=== PATIENT | female | born 1945 | race Caucasian/White ===

== ENCOUNTER → 2018-05-10 14:44 | Outpatient (CLI) | payer MEDICARE, OTHER, SELFPAY ==
--- NOTE | 2018-05-10 14:48 | DI.MG.S_ITS ---
BILATERAL DIGITAL SCREENING MAMMOGRAM 3D/2D WITH CAD: 05/10/2018 CLINICAL: Routine screening. Baseline exam. No prior exams were available for comparison. The tissue of both breasts is predominantly fatty. Current study was also evaluated with a Computer Aided Detection (CAD) system. No significant masses, calcifications, or other findings are seen in either breast. IMPRESSION: NEGATIVE There is no mammographic evidence of malignancy. A 1 year screening mammogram is recommended. This exam was interpreted at Station ID: [id number]. NOTE: For mammograms, a report in lay terms will be sent to the patient. Approximately 15% of breast malignancies will not be visualized mammographically. In the management of a palpable breast mass, a negative mammogram must not discourage biopsy of a clinically suspicious lesion. Electronically Signed By: Vera knox/ankita:05/10/2018 16:56:43 letter sent: Normal Exam ACR BI-RADS Category 1: Negative 3341F
== END ==
PROVIDERS: PCP Family Medicine; Visit Provider Family Medicine
DX: Z12.31 Encounter for screening mammogram for malignant neoplasm of breast (principal)
CPT/HCPCS: 77063; 77067

== ENCOUNTER → 2021-07-15 18:31 | Outpatient (CLI) | payer MEDICARE, OTHER, SELFPAY ==
--- NOTE | 2021-07-15 18:39 | DI.RAD.S_ITS ---
PROCEDURE: XR FOOT LT MIN 3V INDICATIONS: heel pain TECHNIQUE: 3 views of the foot were acquired. COMPARISON: None. FINDINGS: Bones: No fractures or dislocations. No suspicious bony lesions. Moderate plantar calcaneal spur present. Soft tissues: No tibiotalar joint effusion. Achilles tendon appears normal. IMPRESSION: Moderate calcaneal spur. Otherwise unremarkable radiographs Approved by: Calixto Fitch M.D. on 07/15/2021 at 18:00
== END ==
PROVIDERS: PCP Family Medicine; Referring Provider Nurse Practitioner Family; Visit Provider Nurse Practitioner Family
DX: M77.32 Calcaneal spur, left foot (principal); M79.672 Pain in left foot
CPT/HCPCS: 73630

== ENCOUNTER → 2022-03-17 15:00 | Outpatient (CLI) | payer MEDICARE, OTHER, SELFPAY ==
--- NOTE | 2022-03-17 15:02 | DI.MRI.S_ITS ---
PROCEDURE: MR LUMBAR SPINE WO CON INDICATIONS: Lumbago with sciatica, left side TECHNIQUE: Noncontrast sagittal T1 spin echo and T2 fast echo, sagittal STIR, and T2 fast spin echo through the lumbar spine. In cases with scoliosis, additional coronal T2 fast spin echo may be performed. COMPARISON: None. FINDINGS: Image quality: Excellent. Alignment and Curvature: Multilevel grade 1 retrolistheses are seen throughout the lumbar spine measuring 2 mm at L1 on L2, 2 mm at L2 on L3, 2 mm at L3 on L4, and 2 mm of L5 on S1. Bone Marrow: Marrow is of normal overall signal. No acute vertebral body compression fractures. Spinal Cord: Conus medullaris terminates at the L1 level. Visualized cord demonstrates normal signal and size. Paraspinous Soft Tissues: No paravertebral masses. There is grade 2 fatty infiltration of the paraspinous musculature. T12-L1: There is disc desiccation and mild circumferential disc bulging without significant spinal canal stenosis or neural foraminal narrowing. L1-L2: There is disc desiccation and mild loss of disc space height with circumferential disc bulging. Findings do not result in significant spinal canal stenosis or neural foraminal narrowing. L2-L3: There is disc desiccation and mild loss of disc space height with circumferential disc bulging that is mildly eccentric towards the right as well as mild bilateral facet hypertrophy. Findings result in mild narrowing of the spinal canal as well as effacement of the right lateral recess and mild right neural foraminal narrowing without significant left neural foraminal narrowing. L3-L4: There is disc desiccation and loss of disc space height with circumferential disc bulging and mild bilateral facet hypertrophy as well as buckling of the ligamentum flavum. Findings result in moderate narrowing of the spinal canal as well as effacement of the lateral recesses and mild bilateral neural foraminal narrowing. L4-L5: There is disc desiccation and loss of disc space height with circumferential disc bulging and mild to moderate bilateral facet hypertrophy and buckling of the ligamentum flavum. Findings result in moderate narrowing of the spinal canal and mild crowding of the lateral recesses as well as bilateral mild neural foraminal narrowing. L5-S1: Postsurgical changes are seen from left hemilaminotomy with decompression of the thecal sac. There is disc space narrowing and circumferential disc bulging as well as mild bilateral facet hypertrophy. There is moderate right and [id number] left neural foraminal narrowing. IMPRESSION: Multilevel degenerative disc disease and facet hypertrophy as described in detail in the body of the report. There is moderate spinal canal narrowing at the L3-4 and L4-5 levels. Multilevel facet hypertrophy is worst and moderate in severity at the L5-S1 level on the right. Dictated by: Bao Carlos M.D. on 03/17/2022 at 18:17 Approved by: Bao Carlos M.D. on 03/17/2022 at 18:30
== END ==
PROVIDERS: PCP Family Medicine; Referring Provider Family Medicine; Visit Provider Family Medicine
DX: M48.061 Spinal stenosis, lumbar region without neurogenic claudication (principal); M54.42 Lumbago with sciatica, left side; G89.29 Other chronic pain; R29.2 Abnormal reflex; M47.896 Other spondylosis, lumbar region
CPT/HCPCS: 72148